=== PATIENT | female | born 1985 | race Two or more races ===

== ENCOUNTER 2022-10-19 05:29 | Emergency (ER) | payer MEDICAID, OTHER ==
[~2022-10-19] VITALS: Ht 149.9 cm; Wt 43.1 kg
--- NOTE | 2022-10-19 05:45 | NUR ---
[id number] FR HOME W/ CC N/V, ABDL PAIN 12/17. HX LIVER CIRRHOSIS, HAD LIVER TRANSPLANT 08/2022. TAKING IMMUNOSUPPRESANT MEDS
[2022-10-19] MEDS ORDERED: MORPHINE SULFATE INJ 2 MG/ML DISP.SYRIN IV ONE ×4 (06:00→19:30)
[2022-10-19] MEDS ORDERED: ONDANSETRON HCL/PF 4 MG/2 ML VIAL IVP ONE (06:00)
[2022-10-19] MEDS ORDERED: IV NS 0.9% 500 ML BAG IV ONE (06:00)
--- NOTE | 2022-10-19 06:00 | NUR ---
DR. PRICE AT BEDSIDE
--- NOTE | 2022-10-19 06:15 | NUR ---
20G STARTED ON L AC. BLOOD COLLECTED AND SENT TO LAB
[2022-10-19] MEDS ORDERED: ONDANSETRON HCL/PF 4 MG/2 ML VIAL ONE ×3 (06:17→13:34)
[2022-10-19] MEDS ORDERED: MORPHINE SULFATE INJ 2 MG/ML DISP.SYRIN ONE ×3 (06:17→19:20)
--- NOTE | 2022-10-19 06:20 | NUR ---
SPOKE WITH [facility] TO GET INTO CONTACT WITH LIVER TRANSPLANT TEAM. DR. JOAN BARRERA NOTIFIED AND WILL CALL BACK.
[2022-10-19 06:33] LABS: BASOPHILS % (AUTO) 0.7 % (0.0-2.0); EOSINOPHILS % (AUTO) 2.6 % (0.0-6.0); HEMATOCRIT 34 % (33-45); HEMOGLOBIN 11.5 g/dL (11.5-14.8); LYMPHOCYTES # (AUTO) 0.9 K/uL (0.8-4.8); LYMPHOCYTES % (AUTO) 37.3 % (20.0-44.0); MEAN CORPUSCULAR HGB CONC 34 g/dl (31.0-36.0); MEAN CORPUSCULAR VOLUME 88 fL (82-100); MONOCYTES # (AUTO) 0.1 K/uL (0.1-1.30); MONOCYTES % (AUTO) 4.3 % (2.0-12.0); NEUTROPHILS # (AUTO) 1.3 K/uL (1.8-8.9); NEUTROPHILS % (AUTO) 55.1 % (43.0-81.0); PLATELET COUNT (AUTO) 365 K/uL (150-450); RED BLOOD CELL COUNT(AUTO) 3.85 MIL/uL (4.0-5.2); WHITE BLOOD COUNT (AUTO) 2.4 K/uL (4.3-11.0)
[2022-10-19 06:44] LABS: CREATININE 0.6 mg/dL (0.6-1.3); POTASSIUM 3.8 mmol/L (3.5-5.1)
[2022-10-19 06:51] LABS: ALBUMIN 3.2 g/dL (3.4-5.0); BILIRUBIN,DIRECT 0.3 mg/dL (0.0-0.2); BILIRUBIN,TOTAL 0.5 mg/dL (0.2-1.0)
--- NOTE | 2022-10-19 07:11 | NUR ---
ULTRASOUND AT BEDSIDE.
--- NOTE | 2022-10-19 07:45 | NUR ---
taken to [place]
[2022-10-19 08:15] LABS: BILIRUBIN,URINE 1+ (NEGATIVE); COLOR,URINE DARK YELLOW (YELLOW); LEUKOCYTE ESTERASE ,URINE NEGATIVE (NEGATIVE); NITRITE, URINE NEGATIVE (NEGATIVE); PROTEIN,URINE TRACE mg/dl (NEGATIVE); UGLUCOSE NEGATIVE (NEGATIVE)
[2022-10-19 08:28] LABS: BACTERIA,URINE Rare /HPF (None Seen); RBC,URINE 0-2 /HPF (0-2); SQUAMOUS EPITHELIAL CELL,UR Few /HPF (None Seen); WBC,URINE 0-2 /HPF (0-3)
--- NOTE | 2022-10-19 08:30 | NUR ---
CALLED [facility] AND SPOKE WITH BRENNAN. LIVER INSTITUTIONAL RESEARCH COORDINATOR PAGED AND WILL CALL BACK.
--- NOTE | 2022-10-19 08:38 | NUR ---
[facility] LIVER TRANSLANT TEAM CALLED BACK AND SPEAKING WITH
--- NOTE | 2022-10-19 08:44 | NUR ---
COVID SWAB TAKEN
--- NOTE | 2022-10-19 08:45 | NUR ---
TRANSPORT TEAM SPEAKING WITH DR PRICE
[2022-10-19] MEDS ORDERED: ONDANSETRON HCL/PF - ER 4 MG/2 ML VIAL IV ONE ×2 (09:00→13:30)
--- NOTE | 2022-10-19 09:21 | NUR ---
[facility] Transfer center: [phone] Accepting MD: Fellow: Dr. King Decker Attending: Dr. Jason Puente: [phone] (pager word processing operator), pager [phone]
--- NOTE | 2022-10-19 09:35 | NUR ---
FAXED CLINICALS TO [facility]
[2022-10-19 09:38] LABS: EOSINOPHILS % (MANUAL) 4 % (0-4); LYMPHOCYTES % (MANUAL) 36 % (16-48); MONOCYTES % (MANUAL) 5 % (0-11.0); NEUTROPHILS % (MANUAL) 55 (42-76)
--- NOTE | 2022-10-19 10:19 | NUR ---
CONFIRMED WITH [facility] TRAN[facility] THAT FAX WAS RECEIVED. WILL CALL BACK WITH ACCEPTANCE AND TRANSPORT INFO
--- NOTE | 2022-10-19 11:45 | NUR ---
PAGED [facility] LIVER TRANSPORT PEDIATRIC GENETICIST Cindi: [phone] (pager zigzag machine operator), pager [phone]
--- NOTE | 2022-10-19 11:54 | NUR ---
ISMAEL QURESHI CABLE SPOOLER CALLED BACK AND TRANSFER CENTER IS AWARE OF TRANSFER. WILL CALLBACK WITH TRANSFER INFO
[2022-10-19 12:15] VITALS: TEMP 97.7
[2022-10-19] MEDS ORDERED: MORPHINE SULFATE INJ 4 MG/ML DISP.SYRIN ONE (13:35)
--- NOTE | 2022-10-19 16:30 | NUR ---
CALLED [facility] TRANSFER [facility] FOR UPDATE. NO BEDS AVAILABLE YET
[2022-10-19 16:38] VITALS: BP 136/105
--- NOTE | 2022-10-19 18:28 | NUR ---
[facility] TRANSFER [facility]ENTER CALLED AND TRANSPORT. PATIENT ACCEPTED AT [address] [place] [address] AND [facility]. NUMBER FOR REPORT IS [phone]. AFTER SETTING TRANSPORT CALL BACK VINICIO FROM TRANSFER CENTER FROM [phone].
--- NOTE | 2022-10-19 18:35 | NUR ---
ISRAEL CODY AND SET UP BLS TRANSPORT TO [facility]. ETA IS 90 MIN
--- NOTE | 2022-10-19 18:39 | NUR ---
CALLED VINICIO FROM TRANSFER CENTER FROM [phone] TO UPDATE.
--- NOTE | 2022-10-19 18:50 | NUR ---
REPORT GIVEN TO LORENA ACRTY [facility]
[2022-10-19] MEDS ORDERED: METOCLOPRAMIDE HCL 10 MG/2 ML VIAL ONE (19:20)
[2022-10-19] MEDS ORDERED: METOCLOPRAMIDE HCL 10 MG/2 ML VIAL IV ONE (19:30)
--- NOTE | 2022-10-19 19:59 | NUR ---
TRANSFERRED TO [facility] IN STABLE CONDITION
== END 2022-10-19 20:00 | disposition short-term general hospital (02) ==
LOC: ER 05:31
DX: K76.89 Other specified diseases of liver (principal); R10.9 Unspecified abdominal pain; Z94.4 Liver transplant status
CPT/HCPCS: 99285; 74176; 96374; 76700; 96375; 96361; 87426; 96376; 82140; 85025; 80048; 87040 ×2; 83605; 83690; 80076; 84703; 81001; 36415; 85730; 80197; 85007; J2270 ×4; J2765; J2405 ×3; J7040; C9803